=== PATIENT | male | born 1965 | race African-American/Black ===

== ENCOUNTER 2017-05-03 06:59 | Emergency (ER) | payer BC ==
[2017-05-03] MEDS ORDERED: Benzonatate 100 MG CAP ONE (08:25)
[2017-05-03] MEDS ORDERED: AMOXicillin 250 MG CAP ONE (13:35)
== END 2017-05-03 08:20 | disposition home or self-care (01) ==
LOC: MADERS 06:59
DX: J20.9 Acute bronchitis, unspecified (principal); E11.9 Type 2 diabetes mellitus without complications; E78.5 Hyperlipidemia, unspecified; Z87.891 Personal history of nicotine dependence; Z79.84 Long term (current) use of oral hypoglycemic drugs; Z79.899 Other long term (current) drug therapy
CPT/HCPCS: 99283

== ENCOUNTER 2020-02-16 08:56 | Emergency (ER) | payer BC, SELFPAY | END 2020-02-16 09:45 | disposition home or self-care (01) | LOC: MADSR 08:56 → MADERS 09:45 | DX: J02.9 Acute pharyngitis, unspecified (principal); E11.9 Type 2 diabetes mellitus without complications | CPT/HCPCS: 99282 ==

== ENCOUNTER 2020-07-28 11:35 | Emergency (ER) | payer SELFPAY ==
[2020-07-28] MEDS ORDERED: Sodium Chloride 0.9% 1,000 ML ONE ×2 (12:01→13:06)
[2020-07-28 12:29] LABS: #Basophils 0.1 thou/uL (0.0-0.2); #Eosinphils 0.1 thou/uL (0.0-0.7); #Lymphocytes 1.5 thou/uL (1.20-3.40); #Monocytes 0.3 thou/uL (0.11-0.59); #Neutrophils 2.6 thou/uL (1.40-6.50); %Basophils 1.7 % (0.0-1.0); %Lymphocytes 32.6 % (21.0-51.0); %Monocytes 6.9 % (0.0-10.0); %Neutrophils 55.9 % (42.0-75.0); Hemoglobin 14.1 g/dL (14.0-18.0); Mean Corpuscular Hemoglobin 26.1 pg (27.0-31.0); Mean Corpuscular Volume 84.3 fL (78.0-98.0); Mean Platelet Volume 9.5 fL (7.4-10.4); Platelet Count 200 thou/uL (130-400); RBC Distribution Width 11.6 % (11.5-14.5); Red Blood Cell (RBC) Count 5.42 mill/uL (4.70-6.10); White Blood Cell (WBC) Count 4.7 thou/uL (4.8-10.8)
[2020-07-28 12:31] LABS: Bilirubin Negative (Negative); Blood, Urine Negative (Negative); Clarity Clear (Clear); Glucose, Urine (Dipstick) 500 mg/dL (Negative); Ketone, Urine Negative (Negative); Leukocyte Negative (Negative); Nitrite Negative (Negative); Protein, Urine (Dipstick) Negative (Neg-Trace)
[2020-07-28 12:33] LABS: Specific Gravity, Urine 1.025 (1.002-1.036)
[2020-07-28 12:44] LABS: Bicarbonate (HCO3v) 27.2 mmol/L (22.0-28.0); CO2 Tension (PvCO2) 52.5 mmHg (42.0-51.0); Calcium, Ionized 1.16 mmol/L (1.15-1.33); Chloride 96 mmol/L (98-107); Hemoglobin - Calc 16.2 g/dL (14.0-18.0); Potassium 4.4 mmol/L (3.5-5.1); Sodium 133 mmol/L (138-145); T. Carbon Dioxide 28.8 mmol/L (22.0-28.0); vO2 Saturation-calc 79.7 % (60.0-85.0)
[2020-07-28 12:48] LABS: ALT (SGPT) 14 U/L (8-55); AST (SGOT) 10 U/L (5-34); Albumin 3.6 g/dL (3.5-5.0); Alkaline Phosphatase 97 U/L (40-110); Anion Gap 17 mmol/L (10-20); BUN (Urea Nitrogen) 12 mg/dL (8.4-25.7); Bilirubin, Total 0.5 mg/dL (0.2-1.2); Calc. Creatinine Clearance 0 mL/min (70-130); Calcium 8.6 mg/dL (7.8-10.44); Carbon Dioxide 21 mmol/L (22-29); Chloride 98 mmol/L (98-107); Globulin 3.4 g/dL (2.4-3.5); Glucose 519 mg/dL (70-105); Potassium 4.3 mmol/L (3.5-5.1); Sodium 132 mmol/L (136-145)
[2020-07-28] MEDS ORDERED: Insulin Regular 300 UNITS/3 ML VIAL ONE (13:06)
== END 2020-07-28 14:15 | disposition home or self-care (01) ==
LOC: MADERS 11:35
DX: E11.65 Type 2 diabetes mellitus with hyperglycemia (principal); E78.5 Hyperlipidemia, unspecified; Z87.891 Personal history of nicotine dependence; Z79.82 Long term (current) use of aspirin; Z79.84 Long term (current) use of oral hypoglycemic drugs
CPT/HCPCS: 36416; 80053; 81003; 82330; 82803; 85025; 96374; J1815; J7050

== ENCOUNTER 2020-08-25 10:06 | Outpatient (CLI) | payer OTHER | END 2020-08-25 10:07 | disposition home or self-care (01) | LOC: MADRAD 10:06 | PROVIDERS: ATTEND Nurse Practitioner Family | DX: R06.2 Wheezing (principal); Z87.09 Personal history of other diseases of the respiratory system | CPT/HCPCS: 71046 ==

== ENCOUNTER 2023-03-06 08:39 | Emergency (ER) | payer BC, SELFPAY | END 2023-03-06 10:10 | disposition home or self-care (01) | LOC: MADERS 08:39 | DX: J01.90 Acute sinusitis, unspecified (principal); E11.9 Type 2 diabetes mellitus without complications; E78.00 Pure hypercholesterolemia, unspecified; Z87.891 Personal history of nicotine dependence; Z79.84 Long term (current) use of oral hypoglycemic drugs; Z79.82 Long term (current) use of aspirin; Z79.899 Other long term (current) drug therapy | CPT/HCPCS: 99283 ==

== ENCOUNTER 2024-03-31 11:35 | Emergency (ER) | payer SELFPAY ==
[2024-03-31] MEDS ORDERED: Ibuprofen 200 MG TAB ONE (11:51)
== END 2024-03-31 12:30 | disposition home or self-care (01) ==
LOC: MADERS 11:35
DX: S16.1XXA Strain of muscle, fascia and tendon at neck level, initial encounter (principal); E11.65 Type 2 diabetes mellitus with hyperglycemia; E78.00 Pure hypercholesterolemia, unspecified; F17.210 Nicotine dependence, cigarettes, uncomplicated; Z79.899 Other long term (current) drug therapy; Z79.84 Long term (current) use of oral hypoglycemic drugs; V89.2XXA Person injured in unspecified motor-vehicle accident, traffic, initial encounter
CPT/HCPCS: 99283